=== PATIENT | female | born 1965 | race Caucasian/White ===

== ENCOUNTER 2017-03-19 21:30 | Emergency (ER) | payer OTHER ==
[~2017-03-19] VITALS: Ht 167.6 cm; Wt 105.0 kg
[~2017-03-19 21:30] MED LIST: ASPI-461 PO; CYAN10005 PO; LOSA50TA6 PO; METF1000 PO; SERT100T PO; TAMO20TA5 PO
[2017-03-19 21:32] VITALS: TEMP 36.6; Ht 167.6 cm; Wt 105.0 kg
[2017-03-19] MEDS ORDERED: INSDGI SC (22:24)
[2017-03-19] MEDS ORDERED: NVLG SQ (22:24)
[2017-03-19] MEDS ORDERED: SERT-234 PO (22:24)
[2017-03-19] MEDS ORDERED: IBUPROFEN 600 MG TAB PO STA (22:32)
[2017-03-20] MEDS ORDERED: AMOXICIL/CLAVU 875MG HOME PACK PO ONE (00:45)
[2017-03-20] MEDS ORDERED: AMOX875T PO (00:45)
[2017-03-20 01:11] VITALS: BP 153/76; PULSE 69; O2SAT 96
--- NOTE | 2017-03-20 03:13 | EMERGENCY ROOM VISIT NOTE ---
History First contact with patient: 22:22 Chief Complaint: FACIAL PAIN/INJURY Stated Complaint: RIGHT JAW PAIN/SWELLING History of Present Illness The patient is a 51 year old female who presents to the Emergency Room with complaints of swelling along the right side of her face that she noticed today. The patient does not have distinct pain, but states that when she opens and closes her jaw she notices some discomfort. She does not have dental pain, fevers, chills, neck pain, or other complaints. She does report having a sinus infection 2 or 3 weeks ago, but has not had significant drainage or facial pressure. The patient has a past history of breast cancer greater than 5 years ago and does take tamoxifen. She does not have other complaints, and was concerned that she cannot get in with her primary care physician in the morning for evaluation. She rates her current discomfort a 1/10. Review of Systems More than 10 systems were reviewed and otherwise negative with the exception of history of present illness. Past Medical/Surgical History Medical Problems: (1) Accid From Overexertion (2) Nasal & Sinus Dis Nec Social History Smoking Status: Former Smoker Alcohol Use: none Drug Use: none Current/Historical Medications Scheduled Amoxicillin & Pot Clavulanate (Augmentin 875-125 mg), 1 TAB PO BID Aspirin (Aspirin), 81 MG PO DAILY Cyanocobalamin (Vitamin B-12), 1,000 MCG PO BID Insulin Aspart (Novolog), 15 UNITS SQ BID Insulin Glargine (Lantus), 42 UNITS SC HS Losartan Potassium (Cozaar), 1 TAB PO DAILY Metformin Hcl (Glucophage), 1,000 MG PO BID Sertraline (Zoloft), 50 MG PO QPM Sertraline Hcl (Zoloft), 100 MG PO QAM Tamoxifen Citrate (Nolvadex), 20 MG PO DAILY Allergies Coded Allergies: Lisinopril (Unverified Allergy, Unknown, BELLS PALSY, 03/19/17) Physical Exam Vital Signs Date Time Temp Pulse Resp B/P (MAP) Pulse Ox O2 Delivery O2 Flow Rate FiO2 03/20/17 01:11 69 20 153/76 96 03/20/17 00:04 70 18 159/84 95 Room Air 03/19/17 23:30 71 18 134/69 96 Room Air 03/19/17 21:32 36.6 83 18 182/86 92 Room Air Pain Rating (0-10): 0 Physical Exam VITALS: Vitals are noted on the nurse's note and reviewed by myself. Vital signs stable. GENERAL: Well-developed, well-nourished, white female, who is in no acute distress and resting comfortably. Patient is cooperative with the examination. HEAD: Normocephalic atraumatic. MOUTH: Mucous membranes moist. Tonsils are not enlarged. Pharynx without erythema, blood, or exudate. Uvula midline. Airway patent. Dentition in good repair. NECK: Supple without nuchal rigidity. There appears to be a small area of swelling just inferior to the angle of the right side mandible. There appears to be palpable lymphadenopathy in this area. These are freely mobile and without significant tenderness. HEART: Regular rate and rhythm without murmurs gallops or rubs. LUNGS: Clear to auscultation bilaterally without wheezes, rales or rhonchi. No retractions or accessory muscle use. Medical Decision & Procedures ER Provider Diagnostic Interpretation: Preliminary Findings Only See Final Report For Complete Findings US SOFT TISSUE: Multiple right submandibular lymph nodes, corresponding to indicated swelling/ lump, measuring up to 2.9 x 0.8 x 1.5 cm. Medications Administered Medications (Trade) Dose Ordered Sig/Jennyfer Route Start Time Stop Time Status Last Admin Dose Admin Ibuprofen (Motrin Tab) 600 mg NOW STAT PO 03/19/17 22:32 03/19/17 22:33 DC 03/19/17 22:43 600 MG Amoxicillin/ Clavulanate Potassium (Augmentin 875MG Home Pack) 1 homepack UD ONCE PO 03/20/17 00:45 03/20/17 00:46 DC 03/20/17 01:02 1 HOMEPACK ED Course Physical exam and history were performed. Nursing notes and EMR were reviewed. Patient appears to have swelling underneath the right side of her mandible. Clinically this is most consistent with a lymph node. The patient does have a history of breast cancer in remission however, and because of this I did elect to confirm my suspicion with an ultrasound. The patient was medicated in the ER with 600 mg oral ibuprofen. Ultrasound was performed and does show multiple right-sided submandibular lymph nodes. Clinically this does correlate with her findings. I am unsure of the exact etiology of her lymph nodes. She did have some sinus infection symptoms over the past 2 weeks, but her exam is otherwise benign. She is diabetic as well. Because of this I will start her on a course of Augmentin. The patient will need close follow-up with her primary care physician, as she may need a fine-needle aspiration if this persists. The patient was otherwise invited back to the ER if her symptoms worsened or if she began having difficulty with breathing or swallowing. The patient was very comfortable with this and voiced understanding. She rated her discomfort a 0/ 10 at the time of departure. The chart was completed utilizing [employer] Speech Voice Recognition Software. Grammatical errors, random word insertions, pronoun errors, and incomplete sentences are an occasional consequence of this system due to software limitations, ambient noise, and hardware issues. Any formal questions or concerns about the content, text, or information contained within the body of this dictation should be directly addressed to the provider for clarification. . Medical Decision Differential diagnosis includes, but is not limited to: Abscess, infection, dental infection, sialoadenitis, lymphadenopathy, sinusitis, metastatic process , and others Impression Primary Impression: Enlarged lymph node in neck Departure Information Dispostion Home / Self-Care Condition GOOD Prescriptions Amoxicillin & Pot Clavulanate (Augmentin 875-125 mg) 1 Tab Tab 1 TAB PO BID for 9 Days, #18 TAB Prov: Maxx Avina PA-C 03/20/17 Forms HOME CARE DOCUMENTATION FORM, Work Instructions, IMPORTANT VISIT INFORMATION Patient Instructions My [facility] Additional Instructions You were seen and evaluated today on an emergency basis only. This is not a substitute for, or an effort to provide, complete comprehensive medical care. It is not possible to recognize and treat all injuries or illnesses in a single emergency department visit. For this reason it is recommended that you followup with your primary care physician on Friday as scheduled. Amoxicillin Clavulanate (Augmentin) 875mg: Take one pill twice daily for 10 days for your possible infection. All antibiotics can cause diarrhea. If this occurs and you feel worse or it does not resolve in 1-2 days follow up with your doctor or return to the Emergency Department as this could be signs of serious underlying problems. Any medication can cause an allergic reaction, stop the pills immediately and return to the ER for rash, hives, breathing difficulties, or swelling. You are welcome to return to the emergency department anytime with new, worsening, or concerning symptoms.
--- NOTE | 2017-03-20 07:15 | DIAGNOSTIC IMAGING REPORT ---
RIGHT NECK ULTRASONOGRAPHY CLINICAL HISTORY: Right submandibular mass. History of breast carcinoma COMPARISON STUDY: No previous studies for comparison. FINDINGS: Ultrasonographic evaluation the right submandibular region was performed. There is a corresponding prominent lymph node measuring 29 x 15 x 8 mm. Several additional small lymph nodes are visualized. The lymph node demonstrates mild cortical thickening. IMPRESSION: The palpable right submandibular mass corresponds to a 29 x 15 x 8 mm lymph node with mild cortical thickening Electronically signed by: August De La Vega M.D. 03/20/2017 7:13 AM Dictated Date/Time: 03/20/2017 7:11 AM
== END 2017-03-20 01:12 | disposition home or self-care (01) ==
LOC: C.EDB 21:31
DX: R59.9 Enlarged lymph nodes, unspecified (principal); Z86.19 Personal history of other infectious and parasitic diseases; Z87.891 Personal history of nicotine dependence; Z79.82 Long term (current) use of aspirin; Z79.4 Long term (current) use of insulin; Z79.84 Long term (current) use of oral hypoglycemic drugs; Z79.899 Other long term (current) drug therapy; Z88.8 Allergy status to other drugs, medicaments and biological substances

== ENCOUNTER → 2017-12-03 | Outpatient (CLI) | payer OTHER ==
[~2017-12-03] MED LIST changes: +INSDGI SC; +NVLG SQ; +SERT-234 PO
--- NOTE | 2017-12-03 11:25 | DIAGNOSTIC IMAGING REPORT ---
SOFT TISS HEAD/NECK-THYROID HISTORY: Adenopathy R22.1 Mass of right side of neckFollow up to study done on 03/20/ COMPARISON: 03/19/2017 FINDINGS: The right submandibular adenopathy previously described has reverted to a normal appearance. Maximum lymph node dimensions currently is 1.2 x 0.6 cm. Morphology is within normal limits. No evidence for significant adenopathy at the current time. IMPRESSION: 1. Improved exam. 2. The enlarged node the right submandibular region has resolved 3. Several small residual nodes within normal limits. The above report was generated using voice recognition software. It may contain grammatical, syntax or spelling errors. Electronically signed by: Bryson Ybarra M.D. 12/03/2017 11:23 AM Dictated Date/Time: 12/03/2017 11:21 AM
== END | disposition home or self-care (01) ==
LOC: C.ULTR 10:42
PROVIDERS: ATTEND Nurse Practitioner Family
DX: R22.1 Localized swelling, mass and lump, neck (principal)